=== PATIENT | male | born 1975 | race Asian ===

== ENCOUNTER 2016-04-18 09:48 | Emergency (ER) | payer OTHER ==
[~2016-04-18] VITALS: Ht 190.5 cm; Wt 85.3 kg
[2016-04-18 10:05] VITALS: BP 151/93; TEMP 98.7
== END 2016-04-18 11:30 | disposition home or self-care (01) ==
LOC: ED 09:48
DX: S90.31XA Contusion of right foot, initial encounter (principal); W22.8XXA Striking against or struck by other objects, initial encounter; Y92.098 Other place in other non-institutional residence as the place of occurrence of the external cause
CPT/HCPCS: 99282

== ENCOUNTER 2016-09-25 13:54 | Emergency (ER) | payer OTHER ==
[~2016-09-25] VITALS: Ht 190.5 cm; Wt 81.6 kg
[2016-09-25 14:00] VITALS: TEMP 99
[2016-09-25 15:08] VITALS: BP 132/80
== END 2016-09-25 15:13 | disposition home or self-care (01) ==
LOC: ED 13:54
PROC: 2W3CX1Z Immobilization of Right Lower Arm using Splint (ICD-10-PCS; principal; 2016-09-25)
DX: M25.531 Pain in right wrist (principal); G56.01 Carpal tunnel syndrome, right upper limb
CPT/HCPCS: 96376; 99282; L3908

== ENCOUNTER 2016-11-03 10:57 | Emergency (ER) | payer OTHER ==
[~2016-11-03] VITALS: Ht 190.5 cm; Wt 81.6 kg
[2016-11-03 11:08] VITALS: BP 121/85; TEMP 98.7
== END 2016-11-03 11:20 | disposition home or self-care (01) ==
LOC: ED 10:57
DX: L98.8 Other specified disorders of the skin and subcutaneous tissue (principal); N63 Unspecified lump in breast
CPT/HCPCS: 99281

== ENCOUNTER 2020-06-10 01:45 | Emergency (ER) | payer OTHER | END 2020-06-10 02:45 | disposition home or self-care (01) | LOC: ED 01:45 | DX: H16.139 Photokeratitis, unspecified eye (principal) | CPT/HCPCS: 99281 ==